=== PATIENT | male | born 1955 | race Hispanic/Latino ===

== ENCOUNTER → 2019-09-26 | Outpatient (CLI) | payer MEDICARE ==
[~2019-09-26] MED LIST: GADOBENATE DIMEGLUMINE 1 ML IV ONE; SODIUM CHLORIDE 0.9% 50ML 50 ML ONE
[2019-09-26 09:21] LABS: CREATININE, SERUM 1.66 mg/dL (0.72-1.25)
--- NOTE | 2019-09-26 14:43 | Diagnostic Imaging Report ---
MRI abdomen without and with contrast History: Kidney cancer Comparison: None Technique: Multiplanar and multisequence MRI images of the abdomen were obtained without and subsequently following the administration of intravenous gadolinium. Findings: The heart is normal in size. No pericardial effusion is appreciated. Within segment 6 of the liver, a T2 hyperintense lesion is noted, without appreciable enhancement measuring 3.0 cm in long axis dimension. This is consistent with a simple cyst. The liver is otherwise unremarkable. The gallbladder demonstrates no intraluminal defect, wall thickening, or pericholecystic fluid. Unremarkable appearance of the pancreas and spleen. The patient is status post right nephrectomy. No recurrent mass is visualized. Left kidney demonstrates evidence of hydronephrosis or solid mass. A cyst within the posterior mid left kidney measures 1 cm in size. No lymphadenopathy is seen within the abdomen or pelvis. No free fluid is seen. The visualized bowel loops appear normal in caliber. Impression: Status post right nephrectomy, without evidence of recurrent mass. No evidence of metastatic disease in the abdomen. Signed by: Chris Cruz MD on 09/26/2019 2:39 PM
== END ==
LOC: MRI 08:44
PROVIDERS: ATTEND Urology
DX: C64.1 Malignant neoplasm of right kidney, except renal pelvis (principal)
CPT/HCPCS: 36415; 74183; 82565; 84520; A9577